=== PATIENT | male | born 1970 | race Caucasian/White ===

== ENCOUNTER 2023-11-04 10:20 | Emergency (ER) | payer MEDICARE, SELFPAY ==
[2023-11-04 10:22] VITALS: BP 157/68; PULSE 72; RESP 18; TEMP 36.4; O2SAT 97; BMI 24.3
--- NOTE | 2023-11-04 10:52 | PC.NURSE ---
Addendum entered by Venessa Garcia RN 11/04/23 10:53: Sister states that he was just at the doctor 2 weeks ago she doesnt feel that it is heart related and when he has these symptoms he is dehydrated. Requested that we just check labs at this time before any other test. Original Note: Pts family requested for an EKG not to be done at this time
[2023-11-04 10:55] LABS: Basophils % 0.5 % (0.1-2.0); Eosinophils # 0.2 K/mm3 (0.0-0.4); Eosinophils % 3.3 % (0.1-12.0); Hematocrit 47.3 % (42.0-52.0); Hemoglobin 14.1 g/dL (14.1-18.0); Lymphocytes # 1.4 K/mm3 (0.7-4.5); Lymphocytes % 31.1 % (10-50); Mean Corpuscular HGB Conc 29.8 g/dL (31.8-35.4); Mean Corpuscular Hemoglobin 21.3 pg (27.0-31.2); Mean Corpuscular Volume 71.6 fl (80-94); Mean Platelet Volume 7.8 fl (7.4-10.4); Monocytes # 0.3 K/mm3 (0.1-1.0); Monocytes % 6.4 % (1.7-9.3); Neutrophils # 2.7 K/mm3 (1.8-7.8); Neutrophils % 58.6 % (37.0-80.0); Platelet Count 172 K/mm3 (142-424); Red Blood Count 6.61 M/mm3 (4.60-6.20); Red Cell Distribution Width 14.8 % (11.5-17.5); White Blood Count 4.6 K/mm3 (4.8-10.8)
[2023-11-04 11:04] LABS: Microscopic, Urine URINE MICROSCOPIC (MICROSCOPIC)
[2023-11-04 11:04] LABS: Alanine Aminotransferase 17 U/L (12-78); Albumin Level 4.2 g/dl (3.5-5.0); Albumin/Globulin Ratio 1.3 (1.1-1.8); Alkaline Phosphatase 61 U/L (38-126); Anion Gap 7.6 mEq/L (5-15); Aspartate Amino Transferase 29 U/L (17-59); Bilirubin,Total 0.6 mg/dl (0.2-1.3); Blood Urea Nitrogen 13 mg/dl (9-20); Calcium 9.1 mg/dl (8.4-10.2); Carbon Dioxide 32 mmol/L (22.0-30.0); Chloride 104 mmol/L (98-107); Creatinine Clearance Estimated 93 mL/min (50-200); Estimated Glomerular Filt Rate 89 ml/min (>60); GFR (African American) 107 ML/MIN (>60); Globulin 3.3 g/dL (1.3-3.2); Glucose 94 mg/dl (74-100); Potassium 3.6 mmoL/L (3.5-5.1); Sodium 140 mmol/L (136-145); Total Protein,Serum 7.5 g/dl (6.3-8.2)
--- NOTE | 2023-11-04 11:19 | ED_ITS ---
Discharge Plan Disposition Patient Disposition: Home, Self-Care Chief Complaint: Weakness Prescriptions Prescriptions: No Action divalproex [Depakote] 500 mg Tablet,Delayed Release (Dr/Ec) 1,000 mg PO BID Rx Instructions: TAKES 1,000 IN AM AND 2,OOO PM lacosamide [Vimpat] 100 mg Tablet 100 mg PO BID Referrals Follow up/Referrals: Provider,Referral, MD [Primary Care Provider] - See instructions Activity Restrictions/Add. Instructions Additional Instructions/Restrictions: At this time it was felt you are safe to be discharged home. If new or worsening symptoms please do not hesitate to return the emergency department. If symptoms persist please follow-up with your family doctor as you are able. Clinical Impressions Clinical Impression: Weakness Discharge ED Provider: David Muir General Adult HPI General Chief complaint: Weakness Stated complaint: weakness Time Seen by Provider: 11/04/23 11:11 Mode of Arrival: Wheelchair Source of Information: Patient and Relative Limitations: No Limitations Description of Symptoms (Recalled from ER Triage Doc. by RN): SISTER STATES PT GOT UP THIS MORNING AND WAS UNABLE TO GET OFF THE COUCH WITHOUT HELP AND UNABLE TO AMBULATE BY HIMSELF, SHE STATES NORMALLY HE IS DEHYDRATED WHEN HE STARTS SHOWING SIGNS SIMILAR TO THIS, SHE REPORTS HE GETS DEHYDRATED VERY EASILY History of Present Illness HPI narrative: Patient is a 52-year-old male past medical history of cerebral palsy, seizure disorder on multimodal medical therapy who presents emergency department for evaluation of weakness. Patient is able to ambulate at baseline intermittently. He had had a harder time walking and rising from seated position than normal over the last 24 hours. Caretakers at bedside are concerned for dehydration. He has tolerated 40 ounces of Gatorade this morning. No vomiting, no cough, no other acute complaints at this time. Related Data Home Medications Medication Instructions Recorded Confirmed divalproex 500 mg tablet,delayed 1,000 mg PO BID 11/04/23 11/04/23 release (Depakote) lacosamide 100 mg tablet (Vimpat) 100 mg PO BID 11/04/23 11/04/23 Allergies Allergy/AdvReac Type Severity Reaction Status Date / Time Penicillins Allergy Verified 11/04/23 10:42 Sulfa (Sulfonamide Allergy Verified 11/04/23 10:42 Antibiotics) [facility] Disclaimer: The information contained in this section may have been updated after the patient was seen, as this information can be updated by other users. Medical History (Updated 11/04/23 @ 11:55 by David Muir MD) Seizures Social History Smoking Status: Never smoker alcohol intake: never current occupational status: other Travel in the last 8 weeks: None ROS Obtained: Yes Systems reviewed as appropriate & no additional complaints except as documented Physical Exam General General appearance: alert and in no apparent distress Head Head exam: atraumatic and normocephalic Eye Eye exam: Present PERRL ENT ENT exam: Present mucous membranes moist Neck Neck exam: Present normal inspection Chest Chest inspection: Present normal inspection and symmetric chest wall rise Respiratory Respiratory exam: Present normal lung sounds bilaterally; Absent respiratory distress Cardiovascular Cardiovascular exam: Present regular rate and normal rhythm Abdominal Exam Abdominal exam: Present soft Extremities Exam Extremities exam: Present normal inspection Neurological Exam Neurological exam: Present alert Psychiatric Psychiatric exam: Present normal affect Skin Skin exam: Present warm and dry Medical Decision Making Kaushal Inquiry Pt receiving controlled substance: No Vital Signs: 11/04/23 10:22 11/04/23 11:44 Temperature 97.6 F Temperature Source Temporal Artery Scan Pulse Rate 67 Pulse Rate [Left Radial] 72 Respiratory Rate 18 Blood Pressure 163/79 H Blood Pressure [Right Arm] 157/68 H Blood Pressure Mean 107 Blood Pressure Mean [Right Arm] 97 Blood Pressure Source [Right Arm] Automatic Cuff Blood Pressure Position [Right Arm] Sitting 02 Sat by Pulse Oximetry 97 Oxygen Delivery Method Room Air Lab Data Lab Results 11/04/23 10:45: WBC 4.6 L, RBC 6.61 H, Hgb 14.1, Hct 47.3, MCV 71.6 L, MCH 21.3 L, MCHC 29.8 L, RDW 14.8, Plt Count 172, MPV 7.8, Neut % (Auto) 58.6, Lymph % (Auto) 31.1, Pender % (Auto) 6.4, Eos % (Auto) 3.3, Baso % (Auto) 0.5, Neut # (Auto) 2.7, Lymph # (Auto) 1.4, Pender # (Auto) 0.3, Eos # (Auto) 0.2, Baso # (Auto) 0.0, Sodium 140, Potassium 3.6, Chloride 104, Carbon Dioxide 32 H, Anion Gap 7.6, BUN 13, Creatinine 0.90, Estimated Creat Clear 93, Estimated GFR 89, Est GFR ( Amer) 107, Glucose 94, Calcium 9.1, Total Bilirubin 0.6, AST 29, ALT 17, Alkaline Phosphatase 61, Troponin I < 0.01, Total Protein 7.5, Albumin 4.2, Globulin 3.3 H, Albumin/Globulin Ratio 1.3 11/04/23 10:56: Urine Color Yellow, Urine Appearance Clear, Urine pH 6.0, Ur Specific [place] <= 1.005, Urine Protein Negative, Urine Glucose (UA) Negative, Urine Ketones Negative, Urine Blood Negative, Urine Nitrate Negative, Urine Bilirubin Negative, Urine Urobilinogen 0.2, Ur Leukocyte Esterase Negative 11/04/23 10:45 11/04/23 10:45 Orders (Tests/Meds): ED MEDICATIONS Generic Name Dose Route Start Last Admin Trade Name Freq PRN Reason Stop Dose Admin Sodium Chloride 10 ml 11/04/23 10:46 Sodium Chloride 0.9% 10ml Flush Syringe IV 12/04/23 10:45 NEEDED PRN Maintain IV Site ORDERS Category Date Time Status Complete Blood Count Auto Diff Stat Lab 11/04/23 10:45 Completed Comprehensive Metabolic Panel Stat Lab 11/04/23 10:45 Completed Troponin I Q3H Lab 11/04/23 14:00 Ordered Troponin I Q3H Lab 11/04/23 17:00 Ordered Troponin I Stat Lab 11/04/23 10:45 Completed Urinalysis and Microscopic Stat Lab 11/04/23 10:56 Results Medical Decision Narrative: In summary patient is a 52-year-old male with past medical history described above who presents emergency department for evaluation of weakness. Patient is hemodynamically stable nontoxic-appearing upon arrival, afebrile, at neurologic baseline. Differential diagnosis includes dehydration, deconditioning, among others. Limited workup will be conducted with hematologic labs. Shared decision-making discussion was had at bedside as of to utility of crystalloid bolus versus p.o. challenge and patient will undergo p.o. challenge at bedside. Workup reviewed by me, hematologic labs are nonactionable, no HU or critical electrolyte abnormality. Upon repeat evaluation patient was at baseline at bedside, ambulatory. Given this patient is appropriate for discharge at this time. Critical Care Critical Care Time Critical Care Time: No
[2023-11-04 11:23] LABS: Appearance,Urine CLEAR (Clear); Bilirubin,Urine Negative (Negative); Blood, Urine Negative (Negative); Color,Urine YELLOW (Yellow); Glucose,Urine (UA) Negative (Negative); Ketones,Urine Negative (Negative); Leukocyte Esterase,Urine Negative (Negative); Nitrate,Urine Negative (Negative); Protein,Urine Negative (Negative); Specific Gravity, Urine <= 1.005 (1.005-1.030); Urobilinogen,Urine 0.2 EU/dl (0.2)
[2023-11-04 11:44] VITALS: BP 163/79; PULSE 67
--- NOTE | 2023-11-04 11:47 | PC.NURSE ---
PROVIDED PT WITH A WARM BLANKET.
[2023-11-04 11:52] LABS: Troponin I < 0.01 ng/ml (0.00-0.034)
--- NOTE | 2023-11-04 12:03 | PC.NURSE ---
rounded on pt, no needs at this time, family at bs
[2023-11-04 12:21] VITALS: BP 119/98; PULSE 70; RESP 18; TEMP 36.4; O2SAT 97
[2023-11-04 12:24] LABS: Squamous Epithelial Cell,Urine Occasional #/hpf (0-5); WBC,Urine Occasional #/hpf (0-3)
== END 2023-11-04 12:22 | disposition home or self-care (01) ==
PROVIDERS: Emergency Provider Emergency Medicine
DX: R53.1 Weakness (principal); G80.9 Cerebral palsy, unspecified; G40.909 Epilepsy, unspecified, not intractable, without status epilepticus
CPT/HCPCS: 80053; 81001; 84484; 85025; 99283